=== PATIENT | male | born 1950 | race Two or more races ===

== ENCOUNTER 2025-01-14 12:45 | Inpatient (IN) | payer OTHER ==
[~2025-01-14] VITALS: Ht 174 cm; Wt 83.0 kg
[2025-01-14] MEDS ORDERED: TAMS0.4C PO (14:28)
[2025-01-14] MEDS ORDERED: LOSARTAN POTASS50 MG PO (14:28)
[2025-01-14] MEDS ORDERED: TOPROL XL25 M1 PO (14:28)
[2025-01-14] MEDS ORDERED: ROSUVASTATIN CA20 MG PO (14:29)
[2025-01-16 16:38] LABS: COL EPI 124 SECONDS (82-175)
[2025-01-16 16:43] LABS: INR 1.13; PROTHROMBIN TIME 12.2 SECONDS (9.0-11.5)
[2025-01-21] MEDS ORDERED: PHYTONADIONE 10 MG/ML AMPUL IV STA (11:39)
[2025-01-21] MEDS ORDERED: RINGERS SOLUTION,LACTATED 1,000 ML IV SCH (11:45)
[2025-01-21] MEDS ORDERED: hydrALAZINE HCL 20 MG VIAL IV PRN (13:30)
[2025-01-21] MEDS ORDERED: POLYETHYLENE GLYCOL 3350 238 GM POWDER PO NR (14:00)
[2025-01-21 15:00] VITALS: BP 175/79; O2SAT 99
[2025-01-21] MEDS ORDERED: METOPROLOL SUCCINATE 25 MG TAB.SR.24H PO SCH (17:00)
[2025-01-21] MEDS ORDERED: BISACODYL 5 MG TABLET.EC PO SCH (21:00)
[2025-01-21] MEDS ORDERED: TAMSULOSIN HCL 0.4 MG CAP PO SCH (21:00)
[2025-01-22 00:14] VITALS: BP 138/71; O2SAT 99
[2025-01-22] MEDS ORDERED: MINERAL OIL 133 ML ENEMA RECTAL SCH (05:00)
[2025-01-22] MEDS ORDERED: PHYTONADIONE 10 MG/ML AMPUL IV SCH (07:00)
[2025-01-22 08:00] VITALS: BP 158/75; O2SAT 100
[2025-01-22 08:13] LABS: HEMATOCRIT 33.1 % (39.0-48.0); HEMOGLOBIN 11.1 g/dL (13-16.00); MEAN CORPUSCULAR HEMOGLOBIN 29.1 pg (27.00-32.0); MEAN CORPUSCULAR HGB CONC 33.5 g/dl (32.0-36.0); PLATELET COUNT 134 K/uL (150-450); RED CELL DISTRIBUTION WIDTH 15.7 % (11.5-14.5)
[2025-01-22] MEDS ORDERED: BUPIVACAINE HCL/Mpf 0.5% 10ML VIAL ONE (08:21)
[2025-01-22] MEDS ORDERED: POVIDONE-IODINE 118 ML BOTT TOP ONE (08:21)
[2025-01-22] MEDS ORDERED: DIBUCAINE 30 GM TUBE ONE (08:21)
[2025-01-22] MEDS ORDERED: HEMOSTATIC MATRIX 1 KIT KIT TOP ONE (08:21)
[2025-01-22] MEDS ORDERED: LIDOCAINE HCL 1%/EPINEPHRINE 20ML VIAL IJ ONE (08:21)
[2025-01-22] MEDS ORDERED: METRONIDAZOLE/SODIUM CHLORIDE 500 MG/100 ML PIGGYBACK IV ONE (08:32)
[2025-01-22] MEDS ORDERED: CEFTRIAXONE SODIUM 2,000 MG VIAL ONE (08:32)
[2025-01-22 08:44] LABS: INR 1.08; PROTHROMBIN TIME 11.7 SECONDS (9.0-11.5)
[2025-01-22] MEDS ORDERED: LOSARTAN POTASSIUM 50 MG TABLET PO SCH (09:00)
[2025-01-22] MEDS ORDERED: MORPHINE SULFATE 4 MG/ML VIAL IV ONE ×4 (10:35→11:10)
[2025-01-22] MEDS ORDERED: MORPHINE SULFATE 4 MG/ML CARTRIDGE IV PRN (11:00)
[2025-01-22] MEDS ORDERED: RINGERS SOLUTION,LACTATED 1,000 ML IV SCH (11:00)
[2025-01-22] MEDS ORDERED: ONDANSETRON HCL 2 MG/ML VIAL IV PRN (11:00)
[2025-01-22] MEDS ORDERED: OxyCODONE HCL 5 MG TABLET (ROXICODONE) PO PRN (11:00)
[2025-01-22] MEDS ORDERED: HYOSCYAMINE SULFATE 0.125 MG TAB.SUBL SL SCH (13:00)
[2025-01-22] MEDS ORDERED: SIMETHICONE 125 MG CAPSULE PO SCH (13:00)
[2025-01-22 13:03] LABS: HEMATOCRIT 31.1 % (39.0-48.0); HEMOGLOBIN 10.3 g/dL (13-16.00); MEAN CELL VOLUME 87.5 fL (80.0-100.00); MEAN CORPUSCULAR HGB CONC 33.1 g/dl (32.0-36.0); RED BLOOD COUNT 3.56 M/uL (4.00-6.00); RED CELL DISTRIBUTION WIDTH 15.9 % (11.5-14.5)
[2025-01-22 13:05] LABS: PLATELET COUNT 92 K/uL (150-450)
[2025-01-22] MEDS ORDERED: ACETAMINOPHEN 500 MG GEL..CAP PO SCH (14:00)
[2025-01-22] MEDS ORDERED: CELECOXIB 200 MG CAPSULE PO SCH (17:00)
[2025-01-22] MEDS ORDERED: GABAPENTIN 300 MG CAPSULE PO SCH (17:00)
[2025-01-22] MEDS ORDERED: METOCLOPRAMIDE HCL 5 MG/ML VIAL IV SCH (17:00)
[2025-01-22] MEDS ORDERED: POLYETHYLENE GLYCOL 3350 17 GM BLIST.PACK PO SCH (17:00)
[2025-01-22 17:19] VITALS: BP 161/70; O2SAT 99
[2025-01-22] MEDS ORDERED: FAMOTIDINE/PF 20 MG/2 ML VIAL IV PUSH SCH (21:00)
[2025-01-22 23:56] VITALS: BP 123/58; O2SAT 99
[2025-01-23 07:40] LABS: HEMATOCRIT 28.4 % (39.0-48.0); HEMOGLOBIN 9.5 g/dL (13-16.00); MEAN CELL VOLUME 88.1 fL (80.0-100.00); MEAN CORPUSCULAR HEMOGLOBIN 29.5 pg (27.00-32.0); MEAN CORPUSCULAR HGB CONC 33.5 g/dl (32.0-36.0); RED BLOOD COUNT 3.23 M/uL (4.00-6.00); RED CELL DISTRIBUTION WIDTH 15.6 % (11.5-14.5)
[2025-01-23 07:52] VITALS: BP 103/55; BP 97/49; O2SAT 97
[2025-01-23 08:01] LABS: ALBUMIN 2.9 gm/dL (3.4-5.0); CALCIUM 8.8 mg/dL (8.5-10.1); CREATININE SERUM 2.27 mg/dL (0.70-1.30); GFR 28.36; MAGNESIUM 2.2 mg/dL (1.8-2.4); PHOSPHOROUS 4.2 mg/dL (2.5-4.9); POTASSIUM 4.35 mEq/L (3.5-5.1)
[2025-01-23] MEDS ORDERED: 0.9 % SODIUM CHLORIDE 1,000 ML IV SCH (08:15)
[2025-01-23 08:19] LABS: PLATELET COUNT 87 K/uL (150-450)
[2025-01-23] MEDS ORDERED: LACTULOSE 20 G/30 ML BLIST.PACK PO SCH (09:00)
[2025-01-23] MEDS ORDERED: PANTOPRAZOLE SODIUM 40 MG/VIAL VIAL IV SCH (09:00)
[2025-01-23] MEDS ORDERED: LACTOBACILLUS ACIDOPHILUS 1 CAP CAP PO SCH (09:00)
[2025-01-23 16:09] VITALS: BP 157/75; O2SAT 95
[2025-01-23] MEDS ORDERED: ENOXAPARIN SODIUM 40 MG/0.4 ML SYRINGE SUBCUTANEO SCH (17:00)
[2025-01-23] MEDS ORDERED: ENOXAPARIN SODIUM 30 MG/0.3 ML SYRINGE SUBCUTANEO SCH (17:00)
[2025-01-24 00:26] VITALS: BP 110/58; O2SAT 96
[2025-01-24 08:16] LABS: HEMATOCRIT 30.7 % (39.0-48.0); MEAN CELL VOLUME 88.1 fL (80.0-100.00); MEAN CORPUSCULAR HEMOGLOBIN 29.3 pg (27.00-32.0); MEAN CORPUSCULAR HGB CONC 33.3 g/dl (32.0-36.0); RED BLOOD COUNT 3.48 M/uL (4.00-6.00); RED CELL DISTRIBUTION WIDTH 16.5 % (11.5-14.5)
[2025-01-24 08:21] LABS: PLATELET COUNT 105 K/uL (150-450)
[2025-01-24 08:22] LABS: HEMOGLOBIN 10.2 g/dL (13-16.00)
[2025-01-24 08:50] VITALS: BP 121/72; O2SAT 95
[2025-01-24] MEDS ORDERED: ENOXAPARIN SODIUM 30 MG/0.3 ML SYRINGE SUBCUTANEO SCH (09:00)
[2025-01-24] MEDS ORDERED: ENOXAPARIN SODIUM 40 MG/0.4 ML SYRINGE SUBCUTANEO SCH (09:00)
[2025-01-24 09:09] LABS: CALCIUM 8.9 mg/dL (8.5-10.1); CREATININE SERUM 2.57 mg/dL (0.70-1.30); GFR 24.58; MAGNESIUM 2.4 mg/dL (1.8-2.4); PHOSPHOROUS 3.9 mg/dL (2.5-4.9); POTASSIUM 4.38 mEq/L (3.5-5.1)
[2025-01-24 12:50] LABS: MANUAL PLATELET COUNT 258
[2025-01-24] MEDS ORDERED: ROSUVASTATIN CA20 MG PO (15:51)
[2025-01-24] MEDS ORDERED: HYOSCYAMINE0.125 M1 SL (15:51)
[2025-01-24] MEDS ORDERED: INTESTINEX680 M1 PO (15:51)
[2025-01-24] MEDS ORDERED: LOSARTAN POTASS50 MG PO (15:51)
[2025-01-24] MEDS ORDERED: TOPROL XL25 M1 PO (15:51)
[2025-01-24] MEDS ORDERED: TAMS0.4C PO (15:51)
[2025-01-24 15:58] VITALS: BP 160/69; O2SAT 98
== END 2025-01-24 16:46 | disposition home or self-care (01) | DRG 348 ==
LOC: SURG 01-21 10:49
PROVIDERS: Colon & Rectal Surgery; ADMIT Internal Medicine Geriatric Medicine; ATTEND Internal Medicine Geriatric Medicine
PROC: 3E0T3BZ Introduction of Anesthetic Agent into Peripheral Nerves and Plexi, Percutaneous Approach (ICD-10-PCS; 2025-01-22)
PROC: 30233R1 Transfusion of Nonautologous Platelets into Peripheral Vein, Percutaneous Approach (ICD-10-PCS; 2025-01-22)
PROC: 0DBP7ZZ Excision of Rectum, Via Natural or Artificial Opening (ICD-10-PCS; principal; 2025-01-22 13:00)
DX: C20 Malignant neoplasm of rectum (principal); D68.9 Coagulation defect, unspecified; D69.6 Thrombocytopenia, unspecified; D64.89 Other specified anemias; D63.0 Anemia in neoplastic disease; K64.1 Second degree hemorrhoids; C61 Malignant neoplasm of prostate; I12.9 Hypertensive chronic kidney disease with stage 1 through stage 4 chronic kidney disease, or unspecified chronic kidney disease; N18.30 Chronic kidney disease, stage 3 unspecified; Z85.048 Personal history of other malignant neoplasm of rectum, rectosigmoid junction, and anus

== ENCOUNTER 2025-08-18 15:17 | Inpatient (IN) | payer OTHER ==
[~2025-08-18] VITALS: Ht 172.7 cm; Wt 68.0 kg
[~2025-08-18 15:17] MED LIST: HYOSCYAMINE0.125 M1 SL; INTESTINEX680 M1 PO; LOSARTAN POTASS50 MG PO; ROSUVASTATIN CA20 MG PO; TAMS0.4C PO; TOPROL XL25 M1 PO
--- NOTE | 2025-08-18 16:34 | NUR ---
SE RECIBE PACIENTE ALERTA Y ORIENTADO X3 REFIERE REFERIDO POR ADMISION PARA CIRUGIA.SE MIDEN S/V Y SE UBICA EN CAMA K-6 CON BARANDAS ELEVADAS
[2025-08-18] MEDS ORDERED: PIPERACILLIN/TAZOBACTAM SODIUM 3.375 GM VIAL IV ONE ×2 (17:20→17:30)
[2025-08-18] MEDS ORDERED: PANTOPRAZOLE SODIUM 40 MG/VIAL VIAL IV ONE (17:30)
[2025-08-18] MEDS ORDERED: MORPHINE SULFATE 2 MG/ML SYRINGE IV ONE (17:30)
[2025-08-18] MEDS ORDERED: 0.9 % SODIUM CHLORIDE 1,000 ML IV ONE (17:30)
[2025-08-18] MEDS ORDERED: LIDOCAINE HCL VISCOUS 20MG/ML BLIST 15ML MM ONE (18:31)
[2025-08-18] MEDS ORDERED: AA 4.25%/CAL/LYTES/DEXT 5% 1,000 ML PERIFERAL SCH (19:15)
[2025-08-18] MEDS ORDERED: hydrALAZINE HCL 20 MG VIAL IV PRN (19:15)
[2025-08-18 19:16] LABS: BASO % 0.2 % (0.1-1.2); EOS # 0.00 (0.04-0.54); EOS % 0.0 % (0.7-7.0); LYMPH # 1.25 (1.18-3.74); LYMPH % 13.4 % (19.3-53.1); MEAN PLATELET VOLUME 9.10 fl (9.4-12.4); MONO # 0.65 (0.24-0.82); MONO % 7.0 % (4.7-12.5); NEUT # 7.33 (1.56-6.13); NEUT % 78.6 % (34.0-71.1); RED CELL DISTRIBUTION WIDTH 18.8 % (11.6-14.4)
[2025-08-18 19:20] LABS: ERYTHROCYTE SEDIMENTATION RATE 18 mm/hr (0-20)
[2025-08-18 19:36] LABS: INR 1.17
[2025-08-18 19:39] LABS: ALT/SGPT 18.0 U/L (12-78); AST/SGOT 10.0 U/L (15-37); BILIRUBIN TOTAL 1.0 mg/dL (0.3-1.2); BUN CREA RATIO 19.0 (7.0-25.0); CREATININE SERUM 3.78 mg/dL (0.70-1.30); GFR 15.7; GLOBULINA 4.7 G/DL (2.4-3.5); GLUCOSE FASTING 121.0 mg/dL (65-100); OSMOLALITY SERUM 296.0 MOSM/KG (275-295)
--- NOTE | 2025-08-18 19:44 | NUR ---
PTE EVALUADO POR LESVIA SIMMONS, PRESENTANDO OBSTRUCCION INTESTINAL. SE REALIZA STEPHY DE MUESTRAS DE TRAVON BAJO MEDIDAS ASEPTICAS, MEDICAMENTOS ADMINISTRADOS Y ORIENTACION OFRECIDA SOBRE PROCEDIMIENTOS. SE INTENTA EN VARIAS OCASIONES INSERTAR TUBO NASO GASTRICO SIN EXITO. SE CONECTA A MONITOR CARDIACO Y PENDIENTE ESTUDIOS RAIOLOGICOS Y DUPPLEX DE EXTREMIDADES INFERIORES. CLIENTE ALERTA Y ORIENTADO VERBALIZA ENTENDER PROCEDIMIENTOS Y SEGUIMIENTO DE TRATAMIENTO TRA [facility].
[2025-08-18 20:17] LABS: BAND MAN 10.0 %; LYMPHOCYTE MAN 10.0 %; MONOCYTE MAN 6.0 %
[2025-08-18 20:18] LABS: BASOPHIL MAN 1.0 %; NEUTROPHILS MAN 73.0 %
[2025-08-18] MEDS ORDERED: MORPHINE SULFATE 2 MG/ML SYRINGE IV PRN (21:45)
[2025-08-18] MEDS ORDERED: 0.9 % SODIUM CHLORIDE 1,000 ML IV SCH (21:45)
[2025-08-18] MEDS ORDERED: ONDANSETRON HCL 4 MG in 0.9 % SODIUM CHLORIDE 50 ML IV PRN (21:45)
[2025-08-18] MEDS ORDERED: ACETAMINOPHEN 325 MG TABLET PO PRN (21:45)
[2025-08-19 00:20] VITALS: BP 133/77; O2SAT 99
[2025-08-19 02:45] VITALS: BP 122/66; O2SAT 99
[2025-08-19 06:43] LABS: BASO % 0.1 % (0.1-1.2); EOS # 0.02 (0.04-0.54); EOS % 0.3 % (0.7-7.0); LYMPH # 2.00 (1.18-3.74); LYMPH % 26.1 % (19.3-53.1); MEAN PLATELET VOLUME 8.90 fl (9.4-12.4); MONO # 0.83 (0.24-0.82); MONO % 10.8 % (4.7-12.5); NEUT # 4.73 (1.56-6.13); NEUT % 61.8 % (34.0-71.1); RED CELL DISTRIBUTION WIDTH 19.3 % (11.6-14.4)
[2025-08-19 06:59] LABS: BUN CREA RATIO 19.0 (7.0-25.0); CREATININE SERUM 3.7 mg/dL (0.70-1.30); GFR 16.09; GLUCOSE FASTING 89.0 mg/dL (65-100); OSMOLALITY SERUM 300.0 MOSM/KG (275-295)
[2025-08-19] MEDS ORDERED: ACETAMINOPHEN 500 MG GEL..CAP PO PRN (07:00)
[2025-08-19 08:46] VITALS: BP 129/75; O2SAT 100
[2025-08-19] MEDS ORDERED: ROSUVASTATIN CALCIUM 20 MG TABLET PO SCH (09:00)
[2025-08-19] MEDS ORDERED: LOSARTAN POTASSIUM 50 MG TABLET PO SCH (09:00)
[2025-08-19] MEDS ORDERED: METOPROLOL SUCCINATE 25 MG TAB.SR.24H PO SCH (09:00)
[2025-08-19] MEDS ORDERED: ENOXAPARIN SODIUM 30 MG/0.3 ML SYRINGE SUBCUTANEO STA (12:21)
[2025-08-19 15:30] VITALS: BP 151/82; O2SAT 99
[2025-08-19] MEDS ORDERED: AMINO ACIDS/PROTEIN HYDROLYS 30 ML BLIST.PACK PO SCH (17:00)
[2025-08-19] MEDS ORDERED: AA 4.25%/CAL/LYTES/DEXT 5% 1,000 ML PERIFERAL SCH (17:00)
[2025-08-19] MEDS ORDERED: FAT EMULSIONS 250 ML IV SCH (21:00)
[2025-08-19] MEDS ORDERED: PIPERACILLIN/TAZOBACTAM SODIUM 2.25 GM VIAL IV SCH (21:00)
[2025-08-20 01:35] VITALS: BP 141/75; O2SAT 98
[2025-08-20 06:56] LABS: BASO % 0.2 % (0.1-1.2); EOS # 0.11 (0.04-0.54); EOS % 1.2 % (0.7-7.0); LYMPH # 1.03 (1.18-3.74); LYMPH % 11.1 % (19.3-53.1); MEAN PLATELET VOLUME 9.10 fl (9.4-12.4); MONO # 0.54 (0.24-0.82); MONO % 5.8 % (4.7-12.5); NEUT # 7.46 (1.56-6.13); NEUT % 80.7 % (34.0-71.1); RED CELL DISTRIBUTION WIDTH 19.5 % (11.6-14.4)
[2025-08-20 07:23] LABS: ALT/SGPT 13.0 U/L (12-78); AST/SGOT 10.0 U/L (15-37); BILIRUBIN TOTAL 0.53 mg/dL (0.3-1.2); GLOBULINA 3.6 G/DL (2.4-3.5); GLUCOSE FASTING 107.0 mg/dL (65-100)
[2025-08-20 07:27] LABS: BUN CREA RATIO 20.0 (7.0-25.0); GFR 14.3; OSMOLALITY SERUM 307.0 MOSM/KG (275-295)
[2025-08-20 07:28] LABS: CREATININE SERUM 4.1 mg/dL (0.70-1.30)
[2025-08-20] MEDS ORDERED: BUPIVACAINE HCL/MPF 0.5% 30ML VIAL ONE (09:40)
[2025-08-20] MEDS ORDERED: CHLORHEXIDINE GLUCONATE 120 ML BOTTLE TOP ONE (09:40)
[2025-08-20] MEDS ORDERED: LIDOCAINE HCL 1%/EPINEPHRINE 20ML VIAL IJ ONE (09:40)
[2025-08-20] MEDS ORDERED: METRONIDAZOLE/SODIUM CHLORIDE 500 MG/100 ML PIGGYBACK IV ONE (09:44)
[2025-08-20] MEDS ORDERED: CEFTRIAXONE SODIUM 2,000 MG VIAL ONE (09:44)
[2025-08-20] MEDS ORDERED: DEXAMETHASONE SODIUM PHOSP/PF 10 MG/ML VIAL ONE (10:49)
[2025-08-20] MEDS ORDERED: SUGAMMADEX SODIUM 200 MG/2 ML VIAL IV ONE (12:09)
[2025-08-20 15:13] LABS: URINE APPEARANCE Clear; URINE BILIRRUBIN Negative (NEGATIVE); URINE BLOOD Large; URINE COLOR Yellow; URINE GLUCOSE Negative (NEGATIVE); URINE KETONE Negative (NEGATIVE); URINE LEUKOCYTE Trace; URINE NITRATE Negative; URINE PROTEIN 30 (NEGATIVE); URINE UROBILINOGEN 0.2 E.U./dl
[2025-08-20 15:16] LABS: URINE BACTERIA 69.5 uL (0.0-1933); URINE EPITHELIAL CELLS 13.5 uL (0.0-38.8); URINE RBC 282.6 uL (0.0-20.8); URINE WBC 14.1 uL (0.0-23.2)
[2025-08-20 15:25] VITALS: BP 135/82; O2SAT 97
[2025-08-20 15:27] LABS: URINE CAST 0.14 uL (0.0-1.40)
[2025-08-21 01:56] VITALS: BP 138/79; O2SAT 99
[2025-08-21 06:59] LABS: ALT/SGPT 13.0 U/L (12-78); AST/SGOT 12.0 U/L (15-37); BILIRUBIN TOTAL 0.32 mg/dL (0.3-1.2); CREATININE SERUM 3.79 mg/dL (0.70-1.30); GFR 15.65; GLOBULINA 3.2 G/DL (2.4-3.5); GLUCOSE FASTING 145.0 mg/dL (65-100)
[2025-08-21 07:00] LABS: BUN CREA RATIO 21.0 (7.0-25.0); OSMOLALITY SERUM 310.0 MOSM/KG (275-295)
[2025-08-21 08:57] VITALS: BP 107/69; O2SAT 100
[2025-08-21 11:38] LABS: BASO % 0.0 % (0.1-1.2); EOS # 0.00 (0.04-0.54); EOS % 0.0 % (0.7-7.0); LYMPH # 0.87 (1.18-3.74); LYMPH % 10.2 % (19.3-53.1); MEAN PLATELET VOLUME 9.80 fl (9.4-12.4); MONO # 0.60 (0.24-0.82); MONO % 7.0 % (4.7-12.5); NEUT # 6.99 (1.56-6.13); NEUT % 81.7 % (34.0-71.1); RED CELL DISTRIBUTION WIDTH 19.7 % (11.6-14.4)
[2025-08-21] MEDS ORDERED: MORPHINE SULFATE 2 MG/ML SYRINGE IV PRN (14:45)
[2025-08-21] MEDS ORDERED: RINGERS SOLUTION,LACTATED 1,000 ML IV SCH (15:15)
[2025-08-21 16:00] VITALS: BP 109/48; O2SAT 95
[2025-08-22 00:41] VITALS: BP 123/81; O2SAT 100
[2025-08-22 08:30] LABS: BASO % 0.3 % (0.1-1.2); EOS # 0.04 (0.04-0.54); EOS % 0.5 % (0.7-7.0); LYMPH # 1.00 (1.18-3.74); LYMPH % 13.1 % (19.3-53.1); MEAN PLATELET VOLUME 9.70 fl (9.4-12.4); MONO # 0.50 (0.24-0.82); MONO % 6.5 % (4.7-12.5); NEUT # 5.96 (1.56-6.13); NEUT % 77.8 % (34.0-71.1); RED CELL DISTRIBUTION WIDTH 20.5 % (11.6-14.4)
[2025-08-22 08:38] VITALS: BP 105/70; O2SAT 100
[2025-08-22] MEDS ORDERED: SOD FERRIC GLUC COMPLX/SUCROSE 62.5 MG in 0.9 % SODIUM CHLORIDE 50 ML IV SCH (09:00)
[2025-08-22] MEDS ORDERED: Cyanocobalamin/Mecobalamin 1 TAB.SL SL SCH (09:00)
[2025-08-22 09:26] LABS: ALT/SGPT 15.0 U/L (12-78); AST/SGOT 11.0 U/L (15-37); BILIRUBIN TOTAL 0.37 mg/dL (0.3-1.2); BUN CREA RATIO 25.0 (7.0-25.0); CREATININE SERUM 3.26 mg/dL (0.70-1.30); GFR 18.63; GLOBULINA 3.3 G/DL (2.4-3.5); GLUCOSE FASTING 100.0 mg/dL (65-100); OSMOLALITY SERUM 308.0 MOSM/KG (275-295)
[2025-08-22] MEDS ORDERED: RINGERS SOLUTION,LACTATED 1,000 ML IV SCH (11:45)
[2025-08-22 17:30] VITALS: BP 116/70; O2SAT 96
[2025-08-23 00:10] VITALS: BP 132/71; O2SAT 97
[2025-08-23 07:30] VITALS: BP 104/63; O2SAT 98
[2025-08-23 08:38] LABS: BASO % 0.4 % (0.1-1.2); EOS # 0.05 (0.04-0.54); EOS % 0.7 % (0.7-7.0); LYMPH # 0.75 (1.18-3.74); LYMPH % 10.7 % (19.3-53.1); MEAN PLATELET VOLUME 9.60 fl (9.4-12.4); MONO # 0.44 (0.24-0.82); MONO % 6.3 % (4.7-12.5); NEUT # 5.59 (1.56-6.13); NEUT % 79.9 % (34.0-71.1); RED CELL DISTRIBUTION WIDTH 20.0 % (11.6-14.4)
[2025-08-23 09:13] LABS: BUN CREA RATIO 26.0 (7.0-25.0); CREATININE SERUM 3.06 mg/dL (0.70-1.30); GFR 20.04; GLUCOSE FASTING 127.0 mg/dL (65-100); OSMOLALITY SERUM 312.0 MOSM/KG (275-295)
[2025-08-23 16:00] VITALS: BP 112/64; O2SAT 97
[2025-08-24 00:30] VITALS: BP 117/67; O2SAT 100
[2025-08-24 07:30] VITALS: BP 116/67; O2SAT 97
[2025-08-24] MEDS ORDERED: PANTOPRAZOLE SODIUM 40 MG/VIAL VIAL IV SCH (07:30)
[2025-08-24 16:00] VITALS: BP 128/77; O2SAT 100
[2025-08-25 00:30] VITALS: BP 126/72; O2SAT 99
[2025-08-25 06:23] LABS: BASO % 0.4 % (0.1-1.2); EOS # 0.07 (0.04-0.54); EOS % 1.0 % (0.7-7.0); LYMPH # 1.30 (1.18-3.74); LYMPH % 18.3 % (19.3-53.1); MEAN PLATELET VOLUME 10.20 fl (9.4-12.4); MONO # 0.48 (0.24-0.82); MONO % 6.8 % (4.7-12.5); NEUT # 5.08 (1.56-6.13); NEUT % 71.4 % (34.0-71.1); RED CELL DISTRIBUTION WIDTH 19.9 % (11.6-14.4)
[2025-08-25 06:57] LABS: ALT/SGPT 22.0 U/L (12-78); AST/SGOT 24.0 U/L (15-37); BILIRUBIN TOTAL 0.31 mg/dL (0.3-1.2); BUN CREA RATIO 23.0 (7.0-25.0); CREATININE SERUM 2.56 mg/dL (0.70-1.30); GFR 24.62; GLOBULINA 3.4 G/DL (2.4-3.5); GLUCOSE FASTING 123.0 mg/dL (65-100); OSMOLALITY SERUM 309.0 MOSM/KG (275-295)
[2025-08-25 09:11] VITALS: BP 111/67; O2SAT 98
[2025-08-25 15:42] VITALS: BP 116/70; O2SAT 98
[2025-08-25] MEDS ORDERED: fentaNYL CITRATE 50 MCG/ML AMPUL IV PUSH ONE (21:00)
[2025-08-25] MEDS ORDERED: MIDAZOLAM HCL 2 MG/2 ML VIAL IV PUSH ONE (21:00)
[2025-08-26 00:30] VITALS: BP 121/67; O2SAT 98
[2025-08-26 07:25] LABS: BASO % 0.2 % (0.1-1.2); EOS # 0.11 (0.04-0.54); EOS % 1.7 % (0.7-7.0); LYMPH # 1.44 (1.18-3.74); LYMPH % 22.4 % (19.3-53.1); MEAN PLATELET VOLUME 10.20 fl (9.4-12.4); MONO # 0.48 (0.24-0.82); MONO % 7.5 % (4.7-12.5); NEUT # 4.19 (1.56-6.13); NEUT % 64.9 % (34.0-71.1); RED CELL DISTRIBUTION WIDTH 20.1 % (11.6-14.4)
[2025-08-26 08:00] LABS: BUN CREA RATIO 17.0 (7.0-25.0); CREATININE SERUM 2.48 mg/dL (0.70-1.30); GFR 25.54; GLUCOSE FASTING 99.0 mg/dL (65-100); OSMOLALITY SERUM 299.0 MOSM/KG (275-295)
[2025-08-26 08:17] VITALS: BP 148/69; O2SAT 100
[2025-08-26 16:57] VITALS: BP 134/72; O2SAT 100
[2025-08-26] MEDS ORDERED: GABAPENTIN 300 MG CAPSULE PO SCH (17:00)
[2025-08-26 23:59] VITALS: BP 145/73; O2SAT 99
[2025-08-27 08:17] VITALS: BP 135/63; O2SAT 98
[2025-08-27 11:43] LABS: BASO % 0.5 % (0.1-1.2); EOS # 0.10 (0.04-0.54); EOS % 1.3 % (0.7-7.0); LYMPH # 1.67 (1.18-3.74); LYMPH % 21.0 % (19.3-53.1); MEAN PLATELET VOLUME 10.40 fl (9.4-12.4); MONO # 0.54 (0.24-0.82); MONO % 6.8 % (4.7-12.5); NEUT # 5.43 (1.56-6.13); NEUT % 68.3 % (34.0-71.1); RED CELL DISTRIBUTION WIDTH 18.6 % (11.6-14.4)
[2025-08-27 12:37] LABS: ALT/SGPT 23.0 U/L (12-78); AST/SGOT 20.0 U/L (15-37); BILIRUBIN TOTAL 0.81 mg/dL (0.3-1.2); BUN CREA RATIO 14.0 (7.0-25.0); CREATININE SERUM 2.28 mg/dL (0.70-1.30); GFR 28.14; GLOBULINA 3.5 G/DL (2.4-3.5); GLUCOSE FASTING 81.0 mg/dL (65-100); OSMOLALITY SERUM 294.0 MOSM/KG (275-295)
[2025-08-27] MEDS ORDERED: POTASSIUM PHOS,M-BASIC-D-BASIC 3 MM/ML VIAL IV NR (14:00)
[2025-08-27] MEDS ORDERED: PANTOPRAZOLE SO40 MG PO (14:14)
[2025-08-27] MEDS ORDERED: LOSARTAN POTASS50 MG PO (14:14)
[2025-08-27] MEDS ORDERED: PROTEINEX-18 LI30 ML PO (14:14)
[2025-08-27] MEDS ORDERED: TAMS0.4C PO (14:14)
[2025-08-27] MEDS ORDERED: FUSION PLUS CA1 EACH PO (14:14)
[2025-08-27] MEDS ORDERED: ABANEU-SL TABL1 EACH SL (14:14)
[2025-08-27] MEDS ORDERED: ROSUVASTATIN CA20 MG PO (14:14)
[2025-08-27] MEDS ORDERED: TOPROL XL25 M1 PO (14:14)
[2025-08-27] MEDS ORDERED: NAPH,MB-DB/K PH,MBDB 1 PKT PACKET PO NR (16:00)
[2025-08-28] MEDS ORDERED: PANTOPRAZOLE SODIUM 40 MG TABLET.DR PO SCH (07:30)
== END 2025-08-27 18:21 | disposition home or self-care (01) | DRG 330 ==
LOC: ER 15:17 → SURG 22:43
PROVIDERS: General Practice; Internal Medicine; Internal Medicine Geriatric Medicine; Internal Medicine Infectious Disease; Internal Medicine Nephrology; Urology; ADMIT Colon & Rectal Surgery; ATTEND Colon & Rectal Surgery
PROC: BW21ZZZ Computerized Tomography (CT Scan) of Abdomen and Pelvis (ICD-10-PCS; 2025-08-18)
PROC: B24BYZZ Ultrasonography of Heart with Aorta using Other Contrast (ICD-10-PCS; 2025-08-18)
PROC: B54DZZZ Ultrasonography of Bilateral Lower Extremity Veins (ICD-10-PCS; 2025-08-18)
PROC: 02HV33Z Insertion of Infusion Device into Superior Vena Cava, Percutaneous Approach (ICD-10-PCS; 2025-08-19)
PROC: 0T9B80Z Drainage of Bladder with Drainage Device, Via Natural or Artificial Opening Endoscopic (ICD-10-PCS; 2025-08-20)
PROC: 0D1L4Z4 Bypass Transverse Colon to Cutaneous, Percutaneous Endoscopic Approach (ICD-10-PCS; principal; 2025-08-20 13:45)
PROC: 0TJB8ZZ Inspection of Bladder, Via Natural or Artificial Opening Endoscopic (ICD-10-PCS; 2025-08-20 13:45)
PROC: CT231ZZ Tomographic (Tomo) Nuclear Medicine Imaging of Kidneys, Ureters and Bladder using Technetium 99m (Tc-99m) (ICD-10-PCS; 2025-08-21)
PROC: 0T9130Z Drainage of Left Kidney with Drainage Device, Percutaneous Approach (ICD-10-PCS; 2025-08-25)
PROC: 30243N1 Transfusion of Nonautologous Red Blood Cells into Central Vein, Percutaneous Approach (ICD-10-PCS; 2025-08-26)
DX: K56.609 Unspecified intestinal obstruction, unspecified as to partial versus complete obstruction (principal); C18.9 Malignant neoplasm of colon, unspecified; E87.20 Acidosis, unspecified; N17.9 Acute kidney failure, unspecified; I10 Essential (primary) hypertension; R33.9 Retention of urine, unspecified; D64.9 Anemia, unspecified